=== PATIENT | male | born 1965 | race Caucasian/White ===

== ENCOUNTER 2017-07-08 11:21 | Emergency (ER) | payer SELFPAY ==
[~2017-07-08] VITALS: Ht 167.6 cm; Wt 72.7 kg
[2017-07-08] MEDS ORDERED: AUGMENTIN 875-1 EAC1 PO (14:29)
[2017-07-08 14:37] VITALS: BP 108/76
== END 2017-07-08 14:33 | disposition home or self-care (01) ==
LOC: ED 11:21
DX: J06.9 Acute upper respiratory infection, unspecified (principal); B96.89 Other specified bacterial agents as the cause of diseases classified elsewhere; J40 Bronchitis, not specified as acute or chronic; I25.2 Old myocardial infarction; I25.10 Atherosclerotic heart disease of native coronary artery without angina pectoris; Z95.5 Presence of coronary angioplasty implant and graft; F17.210 Nicotine dependence, cigarettes, uncomplicated; Z91.14 Patient's other noncompliance with medication regimen; Z91.120 Patient's intentional underdosing of medication regimen due to financial hardship